=== PATIENT | female | born 1995 | race Hispanic/Latino ===

== ENCOUNTER 2023-01-17 04:21 | Emergency (ER) | payer MEDICAID ==
[~2023-01-17] VITALS: Ht 157.5 cm; Wt 83.9 kg
[2023-01-17] MEDS ORDERED: IBUP-1493 PO (05:20)
[2023-01-17] MEDS ORDERED: AMOX500C2 PO (05:20)
[2023-01-17] MEDS ORDERED: AMOXICILLIN 500 MG CAPSULE PO ONE (05:30)
[2023-01-17 05:36] VITALS: BP 118/83; PULSE 77; RESP 16; O2SAT 98
== END 2023-01-17 05:37 | disposition home or self-care (01) ==
LOC: EDH 04:21
DX: J02.0 Streptococcal pharyngitis (principal); J45.909 Unspecified asthma, uncomplicated; Z20.822 Contact with and (suspected) exposure to COVID-19
CPT/HCPCS: 99283; 87635; 87880; 87804 ×2; C9803

== ENCOUNTER 2023-05-02 21:59 | Emergency (ER) | payer MEDICAID, OTHER ==
[~2023-05-02] VITALS: Ht 157.5 cm; Wt 78.9 kg
[~2023-05-02 21:59] MED LIST: AMOX500C2 PO; IBUP-1493 PO
[2023-05-02 22:32] LABS: APPEARANCE,URINE CLEAR (CLEAR); BILIRUBIN,URINE NEGATIVE (NEGATIVE); COLOR,URINE LIGHT-YELLOW (YELLOW); GLUCOSE, URINE (UA) NEGATIVE (NEGATIVE); KETONES,URINE NEGATIVE (NEGATIVE); LEUKOCYTE ESTERASE ,URINE NEGATIVE Leu/uL (NEGATIVE); NITRATE,URINE NEGATIVE (NEGATIVE); OCCULT BLOOD,URINE SMALL (NEGATIVE); PROTEIN,URINE NEGATIVE (NEGATIVE); UROBILINOGEN,URINE 0.2 mg/dL (0.2-1.0)
[2023-05-02 22:35] LABS: ADD UA MICROSCOPIC YES
[2023-05-02 22:47] LABS: INFLUENZA TYPE A Negative For Type A (NEGATIVE); INFLUENZA TYPE B Negative For Type B (NEGATIVE)
[2023-05-02 22:58] LABS: MUCUS,URINE RARE LPF (None Seen); SQUAMOUS EPITHELIAL CELL,UR FEW /HPF (0-2)
[2023-05-02 22:59] LABS: SARS-CoV-2, RNA, NAAT NEGATIVE SARS CoV-2 (NEGATIVE)
[2023-05-02 23:59] LABS: BASOPHILS # (AUTO) 0.05 K/uL (0.00-0.20); BASOPHILS % (AUTO) 0.5 % (0.0-5.0); EOSINOPHILS # (AUTO) 0.22 K/uL (0.00-0.70); EOSINOPHILS % (AUTO) 2.1 % (0.0-8.0); HEMATOCRIT 37.7 % (36-48); IMMATURE GRANULOCYTE ABSOLUTE 0.02 K/uL (0-1); LYMPHOCYTES # (AUTO) 3.3 K/uL (1.0-4.8); LYMPHOCYTES % (AUTO) 32.2 % (21.0-51.0); MEAN CORPUSCULAR HEMOGLOBIN 31.1 pg (27.0-33.0); MEAN CORPUSCULAR HGB CONC 33.2 g/dL (32.0-36.0); MEAN CORPUSCULAR VOLUME 93.8 fL (79-99); MONOCYTES # (AUTO) 0.7 K/uL (0.1-1.0); PLATELET COUNT (AUTO) 305 K/uL (130-400); RED BLOOD CELL COUNT(AUTO) 4.02 MIL/uL (4.00-5.50); RED CELL DISTRIBUTION WIDTH 13.2 % (11.0-15.5); WHITE BLOOD COUNT (AUTO) 10.4 K/uL (4.8-10.8)
[2023-05-03] MEDS ORDERED: MORPHINE 4 MG SYG IVP ONE
[2023-05-03] MEDS ORDERED: LACTATED RINGERS 1000ML 1,000 ML IV ONE
[2023-05-03] MEDS ORDERED: METOCLOPRAMIDE 10 MG/2 ML VIAL IVP ONE
[2023-05-03] MEDS ORDERED: FAMOTIDINE 20MG VIAL IV ONE
[2023-05-03 00:20] LABS: CREATININE 0.7 mg/dL (0.5-1.5); POTASSIUM 3.8 mmol/L (3.5-5.1)
[2023-05-03 00:44] LABS: ALBUMIN 3.6 g/dL (3.5-5.0); BILIRUBIN,TOTAL 0.1 mg/dL (0.2-1.0); TOTAL PROTEIN, SERUM 7.7 g/dL (6.0-8.3)
[2023-05-03] MEDS ORDERED: METO-296 PO (03:29)
[2023-05-03] MEDS ORDERED: FAMO-136 PO (03:29)
[2023-05-03 04:05] VITALS: BP 112/64; PULSE 62; RESP 18; O2SAT 99
== END 2023-05-03 04:14 | disposition home or self-care (01) ==
LOC: EDH 21:59
DX: K80.50 Calculus of bile duct without cholangitis or cholecystitis without obstruction (principal); R10.2 Pelvic and perineal pain; Z20.822 Contact with and (suspected) exposure to COVID-19; Z79.899 Other long term (current) drug therapy; Z98.890 Other specified postprocedural states
CPT/HCPCS: 99285; 96374; 76705; 71045; 96361; 96375; 87635; 80053; 84702; 83690; 85025; 87880; 87804 ×2; 81001; 81025; 36415; 93005; C9803; J7120; J3490; J2270; J2765

== ENCOUNTER 2023-08-03 08:48 | Emergency (ER) | payer OTHER ==
[~2023-08-03] VITALS: Ht 157.5 cm; Wt 79.8 kg
[~2023-08-03 08:48] MED LIST changes: +FAMO-136 PO; +METO-296 PO
[2023-08-03 09:10] LABS: RAPID GROUP A STREP negative (NEGATIVE)
[2023-08-03 09:20] LABS: INFLUENZA TYPE A Negative For Type A (NEGATIVE)
[2023-08-03 09:43] LABS: SARS-CoV-2, RNA, NAAT POSITIVE SARS CoV-2 (NEGATIVE)
[2023-08-03 10:03] LABS: INFLUENZA TYPE B Positive For Type B (NEGATIVE)
[2023-08-03] MEDS ORDERED: AMOX1TAB16 PO (10:04)
[2023-08-03 11:03] VITALS: BP 122/81; PULSE 80; RESP 14; O2SAT 99
== END 2023-08-03 11:12 | disposition home or self-care (01) ==
LOC: EDH 08:48
DX: U07.1 COVID-19 (principal); J03.90 Acute tonsillitis, unspecified; H61.21 Impacted cerumen, right ear; J45.909 Unspecified asthma, uncomplicated; Z79.899 Other long term (current) drug therapy; Z98.890 Other specified postprocedural states
CPT/HCPCS: 87635; 87804; 87880